=== PATIENT | male | born 1995 | race Caucasian/White ===

== ENCOUNTER 2023-01-23 12:00 | Emergency (ER) | payer OTHER ==
[~2023-01-23] VITALS: Ht 175.3 cm; Wt 83.9 kg
[2023-01-23 12:14] VITALS: BP 117/95; PULSE 89; RESP 17; TEMP 97.3; O2SAT 96
[2023-01-23] MEDS ORDERED: ONDANSETRON 4 MG/2 ML VIAL IVP ONE ×2 (13:00→17:25)
[2023-01-23] MEDS ORDERED: NACL 0.9% 1,000 ML IV ONE ×2 (13:00→16:45)
[2023-01-23] MEDS ORDERED: MORPHINE SULFATE 4 MG/ML SYR IVP ONE (13:00)
[2023-01-23] MEDS ORDERED: KETOROLAC 30 MG/ML VIAL IVP ONE (13:00)
[2023-01-23 13:41] LABS: BASOPHILS # (AUTO) 0.1 K/uL (0.00-0.22); BASOPHILS % (AUTO) 0.5 % (0.0-2.0); EOSINOPHILS # (AUTO) 0.3 K/uL (0-0.4); HEMATOCRIT 42.7 % (36-52); HEMOGLOBIN 13.5 g/dL (12.0-18.0); LYMPHOCYTES # (AUTO) 3.3 K/uL (2.0-11.5); LYMPHOCYTES % (AUTO) 21.1 % (20.5-51.1); MEAN CORPUSCULAR HEMOGLOBIN 23 pg (27-31); MEAN CORPUSCULAR HGB CONC 32 g/dL (33-37); MEAN CORPUSCULAR VOLUME 72.4 fL (80-94); MONOCYTES # (AUTO) 0.7 K/uL (0.8-1.0); MONOCYTES % (AUTO) 4.5 % (1.7-9.3); NEUTROPHILS # (AUTO) 11.1 K/uL (1.8-7.7); NEUTROPHILS % (AUTO) 71.9 % (42.2-75.2); PLATELET COUNT (AUTO) 321 K/uL (140-450); RED CELL DISTRIBUTION WIDTH 14.7 % (11.6-13.7); WHITE BLOOD COUNT (AUTO) 15.4 K/uL (4.8-10.8)
[2023-01-23 14:04] LABS: ANION GAP 13.2 (8-16); CALCIUM 9.2 mg/dL (8.5-10.1); CARBON DIOXIDE 28.9 mmol/L (21-32); POTASSIUM 4.1 mmol/L (3.5-5.1); TOTAL BILIRUBIN 0.3 mg/dL (0.0-1.0); TOTAL PROTEIN, SERUM 7.2 g/dL (6.4-8.2)
[2023-01-23] MEDS ORDERED: HYDROmorphone PFS 2 MG/ML SYR IVP ONE (14:10)
[2023-01-23] MEDS ORDERED: METOCLOPRAMIDE 10 MG/2 ML INJ VIAL IVP ONE (14:55)
[2023-01-23] MEDS ORDERED: diphenhydrAMINE 50 MG/ML VIAL IVP ONE (14:55)
[2023-01-23] MEDS ORDERED: CEPH-588 PO (18:11)
[2023-01-23 18:20] LABS: APPEARANCE,URINE CLEAR (CLEAR); BILIRUBIN,URINE NEGATIVE (NEGATIVE); BLOOD, URINE NEGATIVE (NEGATIVE); COLOR,URINE YELLOW (YELLOW); LEUKOCYTE ESTERASE ,URINE NEGATIVE (NEGATIVE); NITRITE, URINE NEGATIVE (NEGATIVE); PROTEIN,URINE NEGATIVE (NEGATIVE); UGLUCOSE NEGATIVE (NEGATIVE); UROBILINOGEN,URINE 0.2 EU/dL (0.2 - 1)
[2023-01-23] MEDS ORDERED: IBUP-2213 PO (18:29)
[2023-01-23] MEDS ORDERED: ONDANSETRON 4 MG/2 ML VIAL ONE (19:34)
[2023-01-23 20:30] VITALS: BP 110/98; PULSE 98; RESP 20; TEMP 98; O2SAT 98
== END 2023-01-23 20:30 | disposition home or self-care (01) ==
LOC: MED 12:00
DX: R10.9 Unspecified abdominal pain (principal); Z98.890 Other specified postprocedural states; Z79.1 Long term (current) use of non-steroidal anti-inflammatories (NSAID); Z88.8 Allergy status to other drugs, medicaments and biological substances
CPT/HCPCS: 36415; 74176; 74177; 76870; 80053; 81003; 83690; 85025; 96374; 96375; 96376; 99285; J1170; J1885; J2270; J2405; Q0092; Q9967; J1200; J2765

== ENCOUNTER 2023-07-18 16:38 | Emergency (ER) | payer OTHER ==
[~2023-07-18] VITALS: Ht 177.8 cm; Wt 86.2 kg
[~2023-07-18 16:38] MED LIST: IBUP-2213 PO
[2023-07-18 16:42] VITALS: BP 150/110; PULSE 100; RESP 20; TEMP 98.3; O2SAT 98
[2023-07-18] MEDS ORDERED: MORPHINE SULFATE 4 MG/ML SYR IVP ONE (16:50)
[2023-07-18] MEDS: ACETAMINOPHEN EXTRA STRENGTH 500 MG TAB PO ONE (16:59)
[2023-07-18] MEDS: ONDANSETRON 4 MG/2 ML VIAL IVP ONE (17:07)
[2023-07-18] MEDS: NACL 0.9% 1,000 ML IV ONE (17:09)
[2023-07-18 17:13] LABS: BASOPHILS # (AUTO) 0.1 K/uL (0.00-0.22); BASOPHILS % (AUTO) 0.5 % (0.0-2.0); EOSINOPHILS # (AUTO) 0.3 K/uL (0-0.4); EOSINOPHILS % (AUTO) 2.2 % (0.0-4.0); HEMATOCRIT 40.1 % (36-52); HEMOGLOBIN 13.1 g/dL (12.0-18.0); LYMPHOCYTES # (AUTO) 3.8 K/uL (2.0-11.5); LYMPHOCYTES % (AUTO) 28.7 % (20.5-51.1); MEAN CORPUSCULAR HEMOGLOBIN 24 pg (27-31); MEAN CORPUSCULAR HGB CONC 33 g/dL (33-37); MEAN CORPUSCULAR VOLUME 72.6 fL (80-94); MONOCYTES # (AUTO) 0.8 K/uL (0.8-1.0); MONOCYTES % (AUTO) 6.3 % (1.7-9.3); NEUTROPHILS # (AUTO) 8.2 K/uL (1.8-7.7); NEUTROPHILS % (AUTO) 62.3 % (42.2-75.2); PLATELET COUNT (AUTO) 319 K/uL (140-450); RED BLOOD CELL COUNT(AUTO) 5.53 MIL/uL (4.20-6.10); RED CELL DISTRIBUTION WIDTH 14.3 % (11.6-13.7); WHITE BLOOD COUNT (AUTO) 13.1 K/uL (4.8-10.8)
[2023-07-18 17:29] LABS: ALBUMIN 3.6 g/dL (3.4-5.0); ANION GAP 13.1 (8-16); CALCIUM 8.1 mg/dL (8.5-10.1); POTASSIUM 4.1 mmol/L (3.5-5.1); TOTAL BILIRUBIN 0.4 mg/dL (0.0-1.0); TOTAL PROTEIN, SERUM 6.4 g/dL (6.4-8.2)
[2023-07-18] MEDS: MORPHINE SULFATE 4 MG/ML SYR IVP ONE (18:31)
[2023-07-18] MEDS: METOCLOPRAMIDE 10 MG/2 ML INJ VIAL IVP ONE (18:48)
[2023-07-18 19:34] LABS: APPEARANCE,URINE CLEAR (CLEAR); BILIRUBIN,URINE NEGATIVE (NEGATIVE); BLOOD, URINE NEGATIVE (NEGATIVE); COLOR,URINE YELLOW (YELLOW); LEUKOCYTE ESTERASE ,URINE NEGATIVE (NEGATIVE); NITRITE, URINE NEGATIVE (NEGATIVE); PH,URINE 6.5 (5.0-9.0); PROTEIN,URINE NEGATIVE (NEGATIVE); UGLUCOSE NEGATIVE (NEGATIVE); UROBILINOGEN,URINE 0.2 EU/dL (0.2 - 1)
[2023-07-18] MEDS ORDERED: ACET-10509 PO (19:46)
[2023-07-18] MEDS ORDERED: IBUP-2213 PO (19:46)
[2023-07-18 20:05] VITALS: BP 154/88; PULSE 89; RESP 17; TEMP 97.9; O2SAT 98
== END 2023-07-18 20:05 | disposition home or self-care (01) ==
LOC: MED 16:38
DX: R10.84 Generalized abdominal pain (principal); R11.2 Nausea with vomiting, unspecified; Z87.442 Personal history of urinary calculi; Z79.1 Long term (current) use of non-steroidal anti-inflammatories (NSAID); Z88.8 Allergy status to other drugs, medicaments and biological substances
CPT/HCPCS: 36415; 74176; 80053; 81003; 83690; 85025; 96361; 96374; 96375; 99285; J2270; J2405; J2765; J7030

== ENCOUNTER 2023-10-06 15:38 | Emergency (ER) | payer OTHER ==
[~2023-10-06] VITALS: Ht 175.3 cm; Wt 89.4 kg
[~2023-10-06 15:38] MED LIST changes: +ACET-10509 PO
[2023-10-06 15:57] VITALS: BP 151/96; PULSE 98; RESP 18; TEMP 98.3; O2SAT 97
[2023-10-06 16:42] LABS: BASOPHILS % (AUTO) 0.4 % (0.0-2.0); EOSINOPHILS # (AUTO) 0.2 K/uL (0-0.4); EOSINOPHILS % (AUTO) 2.4 % (0.0-4.0); HEMATOCRIT 44.3 % (36-52); HEMOGLOBIN 14.3 g/dL (12.0-18.0); LYMPHOCYTES # (AUTO) 3.7 K/uL (2.0-11.5); LYMPHOCYTES % (AUTO) 38.2 % (20.5-51.1); MEAN CORPUSCULAR HEMOGLOBIN 24 pg (27-31); MEAN CORPUSCULAR HGB CONC 32 g/dL (33-37); MEAN CORPUSCULAR VOLUME 72.8 fL (80-94); MONOCYTES # (AUTO) 0.8 K/uL (0.8-1.0); MONOCYTES % (AUTO) 7.8 % (1.7-9.3); NEUTROPHILS # (AUTO) 4.9 K/uL (1.8-7.7); NEUTROPHILS % (AUTO) 51.2 % (42.2-75.2); PLATELET COUNT (AUTO) 288 K/uL (140-450); RED BLOOD CELL COUNT(AUTO) 6.09 MIL/uL (4.20-6.10); RED CELL DISTRIBUTION WIDTH 14.5 % (11.6-13.7); WHITE BLOOD COUNT (AUTO) 9.6 K/uL (4.8-10.8)
[2023-10-06] MEDS: NACL 0.9% 1,000 ML IV ONE (16:43)
[2023-10-06] MEDS: ONDANSETRON 4 MG/2 ML VIAL IVP ONE (16:43)
[2023-10-06] MEDS: MORPHINE SULFATE 4 MG/ML SYR IVP ONE ×2 (16:43→18:52)
[2023-10-06 17:21] LABS: ANION GAP 11.9 (8-16); APPEARANCE,URINE CLEAR (CLEAR); BILIRUBIN,URINE NEGATIVE (NEGATIVE); BLOOD, URINE NEGATIVE (NEGATIVE); CALCIUM 8.8 mg/dL (8.5-10.1); CARBON DIOXIDE 28.1 mmol/L (21-32); COLOR,URINE YELLOW (YELLOW); LEUKOCYTE ESTERASE ,URINE NEGATIVE (NEGATIVE); NITRITE, URINE NEGATIVE (NEGATIVE); PROTEIN,URINE NEGATIVE (NEGATIVE); UGLUCOSE NEGATIVE (NEGATIVE); UROBILINOGEN,URINE 0.2 EU/dL (0.2 - 1)
[2023-10-06 17:28] LABS: ALBUMIN 3.9 g/dL (3.4-5.0); BILIRUBIN,DIRECT 0.1 mg/dL (0.0-0.3); TOTAL BILIRUBIN 0.3 mg/dL (0.0-1.0); TOTAL PROTEIN, SERUM 7.2 g/dL (6.4-8.2)
[2023-10-06] MEDS ORDERED: SULF-59 PO (18:04)
[2023-10-06] MEDS ORDERED: ONDA-188 SL (18:04)
[2023-10-06] MEDS ORDERED: PIPERACILLIN/TAZOBACTAM 2.25 GM VIAL IV ONE (18:21)
[2023-10-06] MEDS ORDERED: PIPERACILLIN/TAZOBACTAM 4.5 GM VIAL IV ONE (18:24)
[2023-10-06] MEDS: PIPERACILLIN/TAZOBACTAM 4.5 GM in DEXTROSE 5% 100 ML IV ONE (18:30)
[2023-10-06 19:00] VITALS: BP 129/75; PULSE 80; RESP 17; TEMP 98.3; O2SAT 97
== END 2023-10-06 19:01 | disposition home or self-care (01) ==
LOC: MED 15:38
DX: R10.9 Unspecified abdominal pain (principal); R03.0 Elevated blood-pressure reading, without diagnosis of hypertension; N50.812 Left testicular pain; R30.0 Dysuria; R39.15 Urgency of urination; Z79.1 Long term (current) use of non-steroidal anti-inflammatories (NSAID); Z79.899 Other long term (current) drug therapy; Z88.8 Allergy status to other drugs, medicaments and biological substances
CPT/HCPCS: 36415; 74176; 76870; 80048; 80076; 81003; 83690; 85025; 96361; 96365; 96375; 96376; 99285; J2270; J2405; J2543; J7030; Q0092

== ENCOUNTER 2023-11-15 18:00 | Emergency (ER) | payer OTHER ==
[~2023-11-15] VITALS: Ht 175.3 cm; Wt 90.7 kg
[~2023-11-15 18:00] MED LIST changes: -ACET-10509 PO; +ACET500T99 PO; +ONDA-188 SL; +SULF-59 PO
[2023-11-15 18:05] VITALS: BP 138/71; PULSE 115; RESP 20; TEMP 98.6; O2SAT 98
[2023-11-15 19:29] LABS: APPEARANCE,URINE CLEAR (CLEAR); BILIRUBIN,URINE NEGATIVE (NEGATIVE); BLOOD, URINE NEGATIVE (NEGATIVE); COLOR,URINE YELLOW (YELLOW); LEUKOCYTE ESTERASE ,URINE NEGATIVE (NEGATIVE); NITRITE, URINE NEGATIVE (NEGATIVE); PH,URINE 7.5 (5.0-9.0); PROTEIN,URINE NEGATIVE (NEGATIVE); UGLUCOSE NEGATIVE (NEGATIVE); UROBILINOGEN,URINE 0.2 EU/dL (0.2 - 1)
[2023-11-15] MEDS: methocarbamoL 500 MG TAB PO ONE (19:51)
[2023-11-15] MEDS: LIDOCAINE 5% 1 EA PATCH TP ONE (19:52)
[2023-11-15] MEDS: ONDANSETRON 4 MG/2 ML VIAL IVP ONE ×2 (19:55→21:36)
[2023-11-15] MEDS: MORPHINE SULFATE 10 MG/ML VIAL IVP ONE (19:56)
[2023-11-15] MEDS: NACL 0.9% 1,000 ML IV ONE (20:03)
[2023-11-15] MEDS ORDERED: METH-1681 PO (21:26)
[2023-11-15] MEDS ORDERED: ONDA-188 PO (21:26)
[2023-11-15] MEDS ORDERED: IBUP-2213 PO (21:26)
[2023-11-15] MEDS: MORPHINE SULFATE 4 MG/ML SYR IVP ONE (21:36)
[2023-11-15 21:44] VITALS: BP 132/87; PULSE 111; RESP 18; TEMP 98.6; O2SAT 98
== END 2023-11-15 21:45 | disposition home or self-care (01) ==
LOC: MED 18:00
DX: R10.9 Unspecified abdominal pain (principal); R11.0 Nausea; R30.0 Dysuria; M54.50 Low back pain, unspecified; Z79.899 Other long term (current) drug therapy; Z88.8 Allergy status to other drugs, medicaments and biological substances
CPT/HCPCS: 81003; 96361; 96374; 96375; 96376; 99284; J2270; J2405; J7030